=== PATIENT | male | born 1975 | race Caucasian/White ===

== ENCOUNTER → 2021-09-05 | Outpatient (CLI) | payer OTHER ==
[~2021-09-05] MED LIST: CLIN300 PO; KETO10 PO; NAPR500 PO; OXYACE5T PO; SULTRIDS PO; SULTRISS PO; [UNRECOGNIZED DRUG - REMARK]
[2021-09-10 10:17] LABS: Stool Occult Bld Immuno 1 Negative (NEGATIVE)
== END | disposition home or self-care (01) ==
LOC: LAB SHORT 12:00
PROVIDERS: Physician Assistant
DX: Z12.11 Encounter for screening for malignant neoplasm of colon (principal)
CPT/HCPCS: G0328